=== PATIENT | male | born 1960 | race Caucasian/White ===

== ENCOUNTER 2016-09-05 16:25 | Emergency (ER) | payer OTHER ==
[~2016-09-05] VITALS: Ht 165.1 cm; Wt 71.2 kg
[~2016-09-05 16:25] MED LIST changes: -LISI10TA2 PO; -ZOFR4TAB3 PO
[2016-09-05] MEDS ORDERED: ACETAMINOPHEN TAB 650MG DOSE (2X325MG) PO ONE (17:15)
[2016-09-05] MEDS ORDERED: NS 1,000 ML IV ONE ×3 (17:15→20:00)
[2016-09-05 17:16] LABS: MEAN CORPUSCULAR HEMOGLOBIN 32.5 pg (27.0-33.0); MEAN CORPUSCULAR HGB CONC 35.3 g/dl (32.0-36.5); RED CELL DISTRIBUTION WIDTH 12.2 % (11.5-14.5); WHITE BLOOD COUNT 4.1 K/mm3 (4.0-10.0)
[2016-09-05 17:24] LABS: ALBUMIN 3.4 GM/DL (3.2-5.2); ALBUMIN/GLOBULIN RATIO 1.17 (1.00-1.93); ALKALINE PHOSPHATASE 47 U/L (45-117); ALT/SGPT 18 U/L (12-78); ANION GAP 8 MEQ/L (8-16); AST/SGOT 11 U/L (15-37); BILIRUBIN,DIRECT 0.1 MG/DL (0.0-0.2); BILIRUBIN,TOTAL 0.5 MG/DL (0.2-1.0); BLOOD UREA NITROGEN 14 MG/DL (7-18); CALCIUM LEVEL 8.1 MG/DL (8.5-10.1); CARBON DIOXIDE LEVEL 26 MEQ/L (21-32); CHLORIDE LEVEL 101 MEQ/L (98-107); CREATININE FOR GFR 0.82 MG/DL (0.70-1.30); GLOMERULAR FILTRATION RATE > 60.0 (>56); GLUCOSE, FASTING 133 MG/DL (70-105); POTASSIUM SERUM 3.9 MEQ/L (3.5-5.1); SODIUM LEVEL 135 MEQ/L (136-145); TOTAL PROTEIN 6.3 GM/DL (6.4-8.2)
[2016-09-05] MEDS ORDERED: LISI10TA2 PO (17:24)
--- NOTE | 2016-09-05 17:42 | REP ---
Clinical: Fall . Comparison: None . Findings: The ventricles, sulci, and cisterns are normal in position and appearance. Mitchell-white differentiation is maintained. No acute intracranial hemorrhage, mass/mass effect, pathology or trauma/injury. No evidence for acute infarction. No extra-axial fluid collection. Calvarium is intact. Paranasal sinuses and mastoid air cells are clear. Impression: Normal noncontrast head CT. No evidence for acute intracranial pathology or trauma/injury. Signed by Austin Haas MD 09/05/2016 05:34 P
--- NOTE | 2016-09-05 17:57 | REP ---
Clinical: Fall. Trauma. Technique: AP and lateral views of the left hand. Findings: A subtle nondisplaced fracture involving the base of the second digit middle phalanx as well as possibly involving the distal aspect of the proximal phalanx centered at the interphalangeal joint cannot be excluded. Age-related arthritic degenerative changes at the distal interphalangeal joints noted. Impression: Cannot exclude a nondisplaced fracture centered at the second digit proximal interphalangeal joint. Signed by Austin Haas MD 09/05/2016 05:49 P
[2016-09-05] MEDS ORDERED: ZOFR4TAB3 PO (21:08)
[2016-09-05 21:27] VITALS: BP 132/102
--- NOTE | 2016-09-06 07:26 | ECGEPIP ---
Stationary ECG Study [facility] - ED Test Date: 2016-09-05 Pat Name: CLARENCE JEAN Department: Room: - Gender: M Litigation Secretary: lr : 1960 Requested By: RANDI Krueger Order Number: [id number] Reading MD: Breanna Garduno Measurements Intervals [place] Rate: 88 P: 41 MO: 145 QRS: 48 QRSD: 103 T: 7 QT: 347 QTc: 420 Interpretive Statements SINUS RHYTHM NONSPECIFIC T-WAVE ABNORMALITY NO PRIOR FOR COMPARISON Electronically Signed On 09-06-2016 7:25:36 EDT by Breanna Garduno
== END 2016-09-05 21:46 | disposition home or self-care (01) ==
LOC: EDBD 16:25 → M ED 17:04
DX: R55 Syncope and collapse (principal); S62.641A Nondisplaced fracture of proximal phalanx of left index finger, initial encounter for closed fracture; W19.XXXA Unspecified fall, initial encounter; Y92.018 Other place in single-family (private) house as the place of occurrence of the external cause; Y93.89 Activity, other specified; Y99.8 Other external cause status; I10 Essential (primary) hypertension; Z95.0 Presence of cardiac pacemaker; Z79.899 Other long term (current) drug therapy

== ENCOUNTER → 2016-09-05 | Outpatient (REF) | payer OTHER ==
[~2016-09-05] MED LIST: LISI10TA2 PO; NO HISTORICAL MEDS; TYLE325T5 PO; ZOFR4TAB3 PO
== END ==
LOC: M LAB REF 10:20
PROVIDERS: ATTEND Internal Medicine
DX: R19.7 Diarrhea, unspecified (principal)

== ENCOUNTER 2019-07-14 06:06 | Day surgery (SDC) | payer OTHER ==
[~2019-07-14] VITALS: Ht 166.4 cm; Wt 73.0 kg
[~2019-07-14 06:06] MED LIST changes: +LIDOCAINE 1% MDV 20ML VIAL SQ PRN; +LISI10TA15 PO; +LISI10TA4 PO; +ZOFR4TAB14 PO
[2019-07-14] MEDS ORDERED: ceFAZolin SOD 1 GM in D5W MINI-BAG PLUS 50 ML IV ONE (07:00)
[2019-07-14] MEDS ORDERED: LR 1,000 ML IV ONE (07:00)
[2019-07-14] MEDS ORDERED: BUPIVACAINE/EPIN 0.25% 30 ML VIAL As Ordered ONE (07:12)
[2019-07-14] MEDS ORDERED: MIDAZOLAM INJ 2 MG/2 ML VIAL (J2250) As Ordered ONE (07:18)
[2019-07-14] MEDS ORDERED: fentaNYL 250 MCG/5 ML INJECTION (J3010) As Ordered ONE (07:18)
[2019-07-14] MEDS ORDERED: dexameTHASONE 4 MG/ML 1ML VIAL (J1100) As Ordered ONE (07:19)
[2019-07-14] MEDS ORDERED: ROCURONIUM BROMIDE 50 MG/5 ML VIAL As Ordered ONE ×2 (07:19→08:30)
[2019-07-14] MEDS ORDERED: ONDANSETRON 4MG/2ML VIAL (J2405) As Ordered ONE (07:19)
[2019-07-14] MEDS ORDERED: KETOROLAC 60 MG/2 ML VIAL (J1885) As Ordered ONE (07:19)
[2019-07-14] MEDS ORDERED: propofoL 200 MG/20 ML VIAL As Ordered ONE (07:19)
[2019-07-14] MEDS ORDERED: LIDOCAINE 2% INJ 100 MG/5 ML SDV (FOR ANES.) As Ordered ONE (07:19)
[2019-07-14] MEDS ORDERED: LACRILUBE (AKWA TEARS) OPHTH OINT 3.5 GM As Ordered ONE (07:44)
[2019-07-14] MEDS ORDERED: SUGAMMADEX SODIUM 500 MG/5 ML VIAL (BRIDION) As Ordered ONE (08:18)
--- NOTE | 2019-07-14 09:08 | RO ---
DATE OF PROCEDURE: 07/14/2019 PREOPERATIVE DIAGNOSIS: Symptomatic left inguinal hernia. POSTOPERATIVE DIAGNOSIS: Symptomatic left inguinal hernia. PROCEDURE: Robotic-assisted laparoscopic left inguinal hernia repair with ProGrip mesh. SURGEON: Herman Freire MD STATIONARY ENGINEER: Lili Nguyen NP (provided instrument exchange, trocar placement, and mesh insertion). ANESTHESIA: General endotracheal anesthesia. ESTIMATED BLOOD LOSS (EBL): Minimal. FLUIDS: Crystalloid. BRIEF PROCEDURE SUMMARY: The patient was brought to the operating room and was given general anesthesia. After adequate anesthesia and preoperative antibiotics were given, the patient was prepped and draped in the usual sterile fashion. Next, a supraumbilical incision was made with skin knife. Blunt dissection was carried down to fascia. Fascia was entered with a Veress needle, insufflated to 15 mm of pressure. A dilating 8 mm camera port was placed at this time and under direct visualization two lateral trocars were placed. The camera was docked. The patient was placed in the supine position and there was several adhesions in the pelvis that were taken down sharply with scissors. The sigmoid colon up against the posterior aspect of the bladder almost appeared as though he may have had some episode of diverticulitis in the past. In any case, there was a left inguinal hernia that was appreciated. The peritoneum then was opened using sharp dissection as well as electrocautery and a good plane was created along the peritoneum all the way down to the epigastric and the cord structures. The dissection continued medially as well so that Yong's ligament could be seen in the distance, and once this was appreciated along the line of the peritoneum, this was continued to be mobilized with some blunt dissection and minimal electrocautery. Eventually it was taken off the cord vessels nicely and what was appreciated was a direct inguinal hernia that was placed right between a branch coming off the epigastric and medial to that. In any case, after mobilizing this distally, the hernia sac was delivered into the preperitoneal space. The peritoneum was labored off the vessels. This small vein was left in place but it also came down in towards the bladder itself. Using this as an area where the mesh could be modified a little bit on the inferior aspect the mesh that had been cut to appropriate size was then placed in the preperitoneal space and abutting the lateral aspect of pubis covers Yong's nicely in direct and indirect component nicely. However, right where the vessels were coming down there is a steep drop off and thus I took the scissors and made a small flap that slough down into the area between the vessels and Yong's nicely. The peritoneum was closed with #3-0 V-Loc suture and all trocars removed under direct visualization. #4-0 Vicryl was used to close all incisions. Steri-Strips and a dry sterile dressing was applied. The patient was awakened, extubated, brought to the recovery room awake, alert, hemodynamically stable. Sponge and needle counts correct times two.
[2019-07-14] MEDS ORDERED: PERCOCET 5MG/325MG TAB PO PRN (09:30)
[2019-07-14] MEDS ORDERED: LR 1,000 ML IV SCH ×2 (09:30)
[2019-07-14] MEDS ORDERED: MEPERIDINE INJ 25 MG/ML VIAL (J2175) IV PRN (09:30)
[2019-07-14] MEDS ORDERED: HYDROMORPHONE HCL 0.5 MG/ 0.5 ML SYRINGE (J1170 PER 1) IV PRN (09:30)
[2019-07-14] MEDS ORDERED: NORCO, ANEXSIA 5/325MG TABLET (HYDROcodone/ACETAMINOPHEN) PO PRN (09:30)
[2019-07-14] MEDS ORDERED: ONDANSETRON 4MG/2ML VIAL (J2405) IV PRN ×2 (09:30)
[2019-07-14] MEDS ORDERED: fentaNYL 100 MCG/2 ML INJECTION (J3010) IV PRN (09:30)
[2019-07-14] MEDS ORDERED: LACTATED RINGER'S 1000 ML IV ONE (15:45)
== END 2019-07-14 12:36 | disposition home or self-care (01) ==
LOC: M SDC 06:06
PROVIDERS: ATTEND Surgery
DX: K40.90 Unilateral inguinal hernia, without obstruction or gangrene, not specified as recurrent (principal); I10 Essential (primary) hypertension; Z95.0 Presence of cardiac pacemaker; Z79.899 Other long term (current) drug therapy
CPT/HCPCS: 49650; C1781; J0690; J1100; J1885; J2250; J2405; J3010

== ENCOUNTER 2020-01-29 11:00 | Day surgery (SDC) | payer OTHER ==
[~2020-01-29] VITALS: Ht 165.1 cm; Wt 71.2 kg
[2020-01-29] MEDS ORDERED: ceFAZolin SOD 1 GM in D5W MINI-BAG PLUS 50 ML IV ONE (11:30)
[2020-01-29] MEDS ORDERED: LR 1,000 ML IV ONE (11:30)
[2020-01-29] MEDS ORDERED: ATOR1TAB21 PO (11:36)
[2020-01-29] MEDS ORDERED: fentaNYL 100 MCG/2 ML INJECTION (J3010) As Ordered ONE (11:47)
[2020-01-29] MEDS ORDERED: propofoL 200 MG/20 ML VIAL As Ordered ONE (11:47)
[2020-01-29] MEDS ORDERED: LIDOCAINE 2% 100MG/5ML SDV (FOR ANES.) As Ordered ONE (11:47)
[2020-01-29] MEDS ORDERED: MIDAZOLAM INJ 2MG/2ML VIAL (J2250 PER 1MG) As Ordered ONE (11:48)
[2020-01-29] MEDS ORDERED: LIDOCAINE 1% SDV 30ML VIAL As Ordered ONE (12:03)
[2020-01-29] MEDS ORDERED: KETAMINE HCL 200 MG/20 ML VIAL As Ordered ONE (13:33)
[2020-01-29 15:25] VITALS: BP 133/80
--- NOTE | 2020-03-17 12:53 | RO ---
DATE OF OPERATION: 01/29/2020. PREOPERATIVE DIAGNOSIS: Pacemaker battery depletion. POSTOPERATIVE DIAGNOSIS: Pacemaker battery depletion. PROCEDURE: Ex-plantation of old dual-chamber pacemaker pulse generator and implantation of new dual-chamber pacemaker pulse generator. SURGEON: Kishan Gallegos M.D. GOLD BUYER: None. ANESTHESIA: Lidocaine 1% local/monitor anesthetic care. SPECIMENS: Old dual-chamber pacemaker pulse generator. ESTIMATED BLOOD LOSS: Less than 3 mL. BLOOD PRODUCTS: No blood products were placed. DRAINS: No drains. COMPLICATIONS: None. PROCEDURE DESCRIPTION: The patient was prepped and draped over the left pectoral region, 3M Ioban film was applied. Lidocaine 1% was used for local anesthetic. A Peak PlasmaBlade was used to get through the existing pacemaker incision (the lower of the two scars on the patient's left pectoral region) using a Peak PlasmaBlade. The Peak PlasmaBlade was used to get down to and through the capsule overlying the pacemaker pulse generator. The pacemaker pulse generator was then removed from the pocket. The existing atrial and ventricle leads were then removed from the pulse generator after the set screws were loosened. The ventricle lead was tested in unipolar mode and found to be satisfactory for a chronic lead. The existing atrial and ventricle leads were then plugged into the header of the new pacemaker pulse generator and the set screws were tightened. Next, I took a medium size TYRX antimicrobial envelope and cut it into four pieces, which were placed into the pacemaker pocket. The new pacemaker pulse generator was then placed into the pacemaker pocket. The deep layer was closed using individual sutures consisting of 2-0 Vicryl. A few additional 3-0 Vicryl sutures were used to help approximate the more superficial area. The skin was then approximated using a 4-0 Biosyn subcuticular suture, which was tied at deep level before the starting of the incision line and then placed subcuticular. The end of the suture was then brought through the skin 1 cm from the lateral aspect of the incision and then snipped at the level of the skin. Prineo dressing was applied. Patient tolerated the procedure well without any immediate complications. The existing pacemaker pulse generator that was removed was a Biotronik model IPG, VEDR[address] which had serial #[id number], which was implanted 01/12/2008. The new pacemaker pulse generator implanted was a Medtronic model W1DR01, [place] XT DR CLAUDIA Deluca, with serial #[id number]. The existing atrial lead which is known to be chronically nonfunctioning was a model PY52PV, 52 cm in length, with serial #[id number] made by [employer] originally implanted 03/21/1989. The existing left ventricle lead was a pacesetter model 1016T, 58 cm in length with serial #[id number], originally implanted 03/21/1989. Testing of the existing right ventricle lead in the Operating Room with the pulse analyzer in unipolar configuration showed capture threshold 3.5 volts at 0.8 milliseconds with R wave of 1.2 mV. Device based testing in the Operating Room for the right ventricle lead showed R wave amplitude of 5.4 mV with lead impedance of 190 ohms and capture threshold of 1.75 volts at 0.8 milliseconds. [facility]
== END 2020-01-29 16:29 | disposition home or self-care (01) ==
LOC: M SDC 11:00
PROVIDERS: ATTEND Internal Medicine Cardiovascular Disease
DX: T82.111A Breakdown (mechanical) of cardiac pulse generator (battery), initial encounter (principal); I10 Essential (primary) hypertension; R55 Syncope and collapse; E78.00 Pure hypercholesterolemia, unspecified; Z79.899 Other long term (current) drug therapy; Y71.8 Miscellaneous cardiovascular devices associated with adverse incidents, not elsewhere classified
CPT/HCPCS: 33228; C1785; J0690; J2250; J3010

== ENCOUNTER 2021-11-12 21:59 | Emergency (ER) | payer OTHER ==
[~2021-11-12] VITALS: Ht 167.6 cm; Wt 72.7 kg
[~2021-11-12 21:59] MED LIST changes: +ATOR1TAB21 PO; -LIDOCAINE 1% MDV 20ML VIAL SQ PRN; -LISI10TA15 PO; +LISI10TA22 PO; +LISI10TA24 PO; -LISI10TA4 PO
[2021-11-12] MEDS ORDERED: NS 1,000 ML IV ONE (23:45)
[2021-11-13 00:36] LABS: BASO % 0.4 % (0.0-1.0); EOS % 0.2 % (0.0-3.0); HEMATOCRIT 42.8 % (42.0-52.0); HEMOGLOBIN 14.4 g/dl (13.5-17.5); LYMPH # 1.1 10^3/uL (1.5-5.0); LYMPH % 12.1 % (24.0-44.0); MEAN CORPUSCULAR HEMOGLOBIN 32.7 pg (27.0-33.0); MEAN CORPUSCULAR HGB CONC 33.6 g/dl (32.0-36.5); MEAN CORPUSCULAR VOLUME 97.1 fl (80.0-96.0); MONO # 0.7 10^3/uL (0.0-0.8); MONO % 7.5 % (2.0-8.0); NEUTROPHILS # 7.5 10^3/uL (1.5-8.5); NEUTROPHILS % 79.5 % (36.0-66.0); PLATELET COUNT, AUTOMATED 190 10^3/uL (150-450); RED BLOOD COUNT 4.41 10^6/uL (4.30-6.10); WHITE BLOOD COUNT 9.4 10^3/uL (4.0-10.0)
[2021-11-13 01:10] LABS: BLOOD UREA NITROGEN 14 MG/DL (7-18); CALCIUM LEVEL 8.6 MG/DL (8.8-10.2); CARBON DIOXIDE LEVEL 19 MEQ/L (21-32); CHLORIDE LEVEL 112 MEQ/L (98-107); CREATININE FOR GFR 0.79 MG/DL (0.70-1.30); ETHYL ALCOHOL (ETHANOL) 0.153 % (0.000-0.010); GLOMERULAR FILTRATION RATE > 60.0 (>49); GLUCOSE, FASTING 85 MG/DL (70-100); MAGNESIUM LEVEL 2.4 MG/DL (1.8-2.4); MB/CK RELATIVE INDEX 1.52 (< OR =4); POTASSIUM SERUM 3.9 MEQ/L (3.5-5.1); SODIUM LEVEL 143 MEQ/L (136-145)
[2021-11-13] MEDS ORDERED: NS 1,000 ML IV ONE (01:35)
[2021-11-13 02:22] VITALS: BP 149/77
== END 2021-11-13 02:41 | disposition home or self-care (01) ==
LOC: EDBD 21:59 → M ED 21:59
DX: R55 Syncope and collapse (principal); E86.0 Dehydration; F10.129 Alcohol abuse with intoxication, unspecified; I10 Essential (primary) hypertension; E78.5 Hyperlipidemia, unspecified; Z79.899 Other long term (current) drug therapy

== ENCOUNTER → 2022-07-04 | Outpatient (CLI) | payer OTHER | LOC: M WUC 09:34 | PROVIDERS: ATTEND Nurse Practitioner Adult Health | DX: M54.50 Low back pain, unspecified (principal); M48.061 Spinal stenosis, lumbar region without neurogenic claudication ==

== ENCOUNTER 2022-11-28 09:25 | Day surgery (SDC) | payer OTHER ==
[~2022-11-28] VITALS: Ht 165.1 cm; Wt 72.6 kg
[~2022-11-28 09:25] MED LIST changes: +NS 1,000 ML IV ONE
[2022-11-28] MEDS ORDERED: propofoL 200 MG/20 ML VIAL As Ordered ONE (10:27)
[2022-11-28] MEDS ORDERED: LIDOCAINE 2% 100MG/5ML SDV (FOR ANES.) As Ordered ONE (10:27)
[2022-11-28 11:42] VITALS: TEMP 97.5
[2022-11-28 11:56] VITALS: BP 109/64; O2SAT 96
== END 2022-11-28 12:01 | disposition home or self-care (01) ==
LOC: M OPP 09:25
PROVIDERS: ATTEND Internal Medicine Gastroenterology
DX: Z12.11 Encounter for screening for malignant neoplasm of colon (principal); K64.0 First degree hemorrhoids; Z79.02 Long term (current) use of antithrombotics/antiplatelets; Z79.899 Other long term (current) drug therapy

== ENCOUNTER → 2023-09-05 | Outpatient (CLI) | payer OTHER ==
[~2023-09-05] MED LIST changes: -NS 1,000 ML IV ONE
== END ==
LOC: M WUC 13:26
PROVIDERS: ATTEND Nurse Practitioner Adult Health
DX: R05.9 Cough, unspecified (principal)

== ENCOUNTER → 2025-02-12 | Outpatient (CLI) | payer OTHER | LOC: M RAD 14:15 | PROVIDERS: ATTEND Internal Medicine | DX: N45.1 Epididymitis (principal) ==

== ENCOUNTER → 2025-05-18 | Outpatient (REF) | payer OTHER | LOC: M LAB REF 13:36 | DX: R10.13 Epigastric pain (principal) ==